=== PATIENT | female | born 1960 ===

== ENCOUNTER → 2020-02-04 | Outpatient (CLI) | payer MEDICAID ==
[~2020-02-04] VITALS: Ht 167.6 cm; Wt 83.9 kg
[2020-02-04 13:22] VITALS: BP 141/77
--- NOTE | 2020-02-09 09:00 | Consultation ---
DATE OF CONSULTATION: 02/04/2020 CONSULTING PHYSICIAN: Jose Humphrey MD CHIEF COMPLAINT: Referral for screening colonoscopy, complained of bloating, abdominal pain. PAST MEDICAL HISTORY: 1. Hemorrhoids. 2. Anxiety. PAST SURGICAL HISTORY: Bunion surgery and left eye surgery. MEDICATIONS: Please see medication reconciliation list. FAMILY HISTORY: Father had atrial fibrillation and [place]. Mother had CHF. SOCIAL HISTORY: Patient denies any alcohol, but she used to be smoker, she quit. Denies any drug abuse. ALLERGIES: To mold and grass. REVIEW OF SYSTEMS: Positive for occasional loose stools. PHYSICAL EXAMINATION: VITAL SIGNS: Temperature 97.7, blood pressure 141/77, pulse is 83, respirations 20. HEENT: Normocephalic, atraumatic. Sclerae anicteric. NECK: Supple. No evidence of obvious lymphadenopathy. CARDIOVASCULAR: Regular rate and rhythm. Plus S1-S2. LUNGS: Clear to auscultation bilaterally. ABDOMEN: Positive bowel sounds. Soft and nontender. No rebound. No guarding. No peritoneal sign. EXTREMITIES: No cyanosis, no clubbing, no edema. ASSESSMENT AND PLAN: This is a 59-year-old female with left lower quadrant abdominal pain, loose stools, history of bloating, gas. Patient is here for referral for screening colonoscopy. Patient was given instruction for colonoscopy. Risks and benefits of procedure was explained to her. We will schedule her as soon as authorization is obtained. Meanwhile, we are going to try patient on a trial of Xifaxan for 14 days. Jose Humphrey M.D. DR: CJ JOB#: [id number] CC:
== END | disposition home or self-care (01) ==
LOC: PAN 12:48
DX: R14.0 Abdominal distension (gaseous) (principal); F41.9 Anxiety disorder, unspecified; Z87.891 Personal history of nicotine dependence; R10.32 Left lower quadrant pain
CPT/HCPCS: G0463